=== PATIENT | female | born 1985 | race Caucasian/White ===

== ENCOUNTER 2017-12-30 12:07 | Inpatient (IN) ==
[2017-12-30 13:26] LABS: Bilirubin,Urine Negative (Negative); Clarity,Urine Clear (Clear); Glucose,Urine (UA) Negative (Negative); Leukocyte Esterase,Urine Negative (Negative); Nitrite,Urine Negative (Negative); Urobilinogen,Urine 0.2 mg/dL (Less than 2)
[2017-12-30] MEDS ORDERED: Sod Chloride 0.9% Inj 1,000 ML IV.SIG ONE (13:26)
[2017-12-30] MEDS ORDERED: Acetaminophen 500 MG Tablet PO ONE (13:29)
[2017-12-30 13:32] LABS: Color,Urine Straw (Yellw/Straw)
--- NOTE | 2017-12-30 13:35 | ED ---
HPI General Chief Complaint: Abdominal Pain Stated Complaint: anxiety/vomiting/headache/feverish x2days History of Present Illness HPI narrative: The patient was seen and examined in the presence of the nurse. This patient complains of fever and malaise and left lower quadrant abdominal pain. Duration is 3 days. Severity is moderate. She is an IV heroin abuser. Last use was 3 days ago. Has history of achalasia and has a left lower quadrant feeding tube for tube feeding 12 hours a day. She is on a liquid only diet. No alleviating factors. No exacerbating factors. Related Data Home Medications Medication Instructions Recorded Confirmed buprenorphine-naloxone 1 tab SUBLINGUAL TID 12/30/17 12/30/17 Allergies Allergy/AdvReac Type Severity Reaction Status Date / Time tree nut Allergy Severe Anaphylaxis Verified 12/30/17 12:52 Review of Systems ROS: all other systems reviewed are negative [facility] Medical History Medical History Achalasia (Acute) Jejunostomy tube present (Acute) Social History Social History Substance History: Active Abuse Smoking Status: Heavy tobacco smoker Tobacco Type: Cigarettes How Often Do You Have a Drink Containing Alcohol: Never Recent Travel in [facility] within the Last 8 Weeks: No Recent Out of Country Travel within the Last 8 Weeks: No Exam Narrative Exam Narrative: GENERAL: Thin disheveled well-developed patient with fever and abdominal pain . SKIN: Focused skin assessment reveals no rash and nodules. Skin is Warm and dry. HEAD: Atraumatic. Normocephalic. EYES: Pupils equal and round. No scleral icterus. No injection or drainage. ENT: No nasal bleeding or discharge. Mucous membranes pink and moist. NECK: Trachea midline. No JVD. No meningeal signs CARDIOVASCULAR: Regular rate and rhythm. 2/6 systolic murmur appreciated. RESPIRATORY: No accessory muscle use. Clear to auscultation. Breath sounds equal bilaterally. GASTROINTESTINAL: Abdomen soft, left lower quadrant is tender without rebound or guarding, there is a feeding tube in left lower quadrant, nondistended abdomen. Hepatic and splenic margins not palpable. MUSCULOSKELETAL: No obvious deformities. No clubbing. No cyanosis. No edema. NEUROLOGICAL: Awake and alert. No obvious cranial nerve deficits. Motor grossly within normal limits. Normal speech. PSYCHIATRIC: Appropriate mood and affect; insight and judgment poor. Course Initial Documented Vital Signs Temperature 101.4 F H 12/30/17 12:47 Pulse Rate 124 H 12/30/17 12:47 Respiratory Rate 18 12/30/17 12:47 Blood Pressure 112/59 L 12/30/17 12:47 Pulse Oximetry 99 12/30/17 12:47 Last Documented Vital Signs Temperature 101.4 F H 12/30/17 12:47 Pulse Rate 118 H 12/30/17 13:31 Respiratory Rate 18 12/30/17 13:31 Blood Pressure 120/65 12/30/17 13:31 Pulse Oximetry 98 12/30/17 13:31 Medical Decision Making MDM Narrative Medical decision making narrative: This is a febrile tachycardic IV heroin user with abdominal pain and heart murmur. 2 sets of blood cultures drawn and labs sent Pelvic exam is normal. She does not have PID. Her urine is clean and chest x- ray normal. CBC shows anemia but no leukocytosis. Has minor hyponatremia and hypokalemia. My big concern is endocarditis. She will be admitted for IV antibiotics and likely echocardiogram and following of the blood cultures. I have paged the hospitalist to discuss. She is challenging IV access so I placed a right external jugular 20-gauge IV Medical Screen Exam Complete: Yes Emergency Medical Condition: Yes Differential Diagnosis Differential Diagnosis: Endocarditis, sepsis, PID Medical Records Medical records reviewed: Yes I reviewed the patient's medical records. Lab Data Lab results reviewed: Yes I reviewed the patient's lab results. Result diagrams: 12/30/17 14:07 12/30/17 14:07 POC Results POC Urine Results Negative POC Urine Results Negative Lab Results 12/30/17 12/30/17 12/30/17 Range/Units 12:40 14:07 14:07 CBC w Diff Slide review pending WBC 7.8 (4.0-11.0) th/mm3 RBC 4.25 (4.00-5.30) mil/mm3 Hgb 10.0 L (11.6-15.3) gm/dL Hct 29.3 L (35.0-46.0) % MCV 68.8 L (80.0-100.0) fL MCH 23.4 L (27.0-34.0) pg MCHC 34.0 (32.0-36.0) % RDW 15.1 (11.6-17.2) % Plt Count 258 (150-450) th/mm3 MPV 7.2 (7.0-11.0) fL Neut % (Auto) 89.5 H (16.0-70.0) % Lymph % (Auto) 4.2 L (9.0-44.0) % [place] % (Auto) 5.7 (0.0-8.0) % Eos % (Auto) 0.0 (0.0-4.0) % Baso % (Auto) 0.6 (0.0-2.0) % Neut # (Auto) 7.1 (1.8-7.7) th/mm3 Lymph # (Auto) 0.3 L (1.0-4.8) th/mm3 [place] # (Auto) 0.4 (0.0-0.9) th/mm3 Eos # (Auto) 0.0 (0.0-0.4) th/mm3 Baso # (Auto) 0.0 (0.0-0.2) th/mm3 Differential Comment . Sodium 135 L (136-145) meq/L Potassium 3.2 L (3.5-5.1) meq/L Chloride 100 (98-107) meq/L Calcium 8.3 L (8.5-10.1) mg/dL Ur Collection Type Clean catch Urine Color Straw (Yellw/Straw) Urine Clarity Clear (Clear) Urine pH 8.0 (5.0-8.5) Ur Specific [place] 1.010 (1.002-1.035) Urine Protein Negative (Neg-Trace) mg/dL Urine Glucose (UA) Negative (Negative) mg/dL Urine Ketones Negative (Negative) mg/dL Urine Occult Blood Negative (Negative) Urine Nitrate Negative (Negative) Urine Bilirubin Negative (Negative) Urine Urobilinogen 0.2 (Less than 2) mg/dL Ur Leukocyte Esterase Negative (Negative) Urine RBC 0-3 (0-3) /hpf Urine WBC 0-5 (0-5) /hpf Ur Squamous Epith Cells 0-5 (0-5) /hpf Micro UA Comment Culture not ind Ur Microscopic Review Microscopic reviewed Urine Culture Comments Culture not ind Imaging Data Radiologist's impression: Chest X-Ray 12/30/17 13:26 CONCLUSION: Negative examination. Discharge Plan Discharge Disposition Patient Disposition: 30 Still Patient Discharge Details Diagnosis: Endocarditis, Drug abuse, IV Physicians Team ED Provider: Juan Harden Primary Care Provider: Primary Care Physici,No Rxs /Orders / Referrals /Forms Prescriptions: No Action buprenorphine-naloxone 8-2 mg Tablet, Sublingual 1 tab SUBLINGUAL TID RF: 0 Discharge Interventions Interventions: Vital Signs Last Done: 12/30/17 14:56 Status ED Status: In Room
[2017-12-30 13:43] LABS: RBC,Urine 0-3 /hpf (0-3); Squamous Epithelial Cell,Urine 0-5 /hpf (0-5); WBC,Urine 0-5 /hpf (0-5)
--- NOTE | 2017-12-30 14:13 | XR ---
EXAM DATE: 12/30/2017 1:52 PM EDT AGE/SEX: 32 years / Female INDICATIONS: Fever and vomiting. CLINICAL DATA: This is the patient's initial encounter. Patient reports that signs and symptoms have been present for 1 day and indicates a pain score of 0/10. MEDICAL/SURGICAL HISTORY: . Achalasia. None. COMPARISON: No prior exams available for comparison. FINDINGS: A single AP view of the chest demonstrates the lungs to be symmetrically aerated without evidence of mass, infiltrate or effusion. Nipple shadows generate bilateral basilar nodular densities. The cardio mediastinal contours are unremarkable. Osseous structures are intact. CONCLUSION: Negative examination. Electronically signed by: Michael Houston MD 12/30/2017 2:12 PM EDT
[2017-12-30] MEDS ORDERED: Acetaminophen 650 MG Supp RECTAL ONE (14:29)
[2017-12-30 14:41] LABS: Baso % (Auto) 0.6 % (0.0-2.0); Hematocrit 29.3 % (35.0-46.0); Lymph # (Auto) 0.3 th/mm3 (1.0-4.8); Lymph % (Auto) 4.2 % (9.0-44.0); Mean Corpuscular Hemoglobin 23.4 pg (27.0-34.0); Mean Corpuscular Volume 68.8 fL (80.0-100.0); Mean Platelet Volume 7.2 fL (7.0-11.0); Mono # (Auto) 0.4 th/mm3 (0.0-0.9); Mono % (Auto) 5.7 % (0.0-8.0); Neut # (Auto) 7.1 th/mm3 (1.8-7.7); Neut % (Auto) 89.5 % (16.0-70.0); Platelet Count 258 th/mm3 (150-450); Red Blood Count 4.25 mil/mm3 (4.00-5.30); Red Cell Distribution Width 15.1 % (11.6-17.2); White Blood Count 7.8 th/mm3 (4.0-11.0)
[2017-12-30 14:52] LABS: Chloride 100 meq/L (98-107); Potassium 3.2 meq/L (3.5-5.1); Sodium 135 meq/L (136-145)
[2017-12-30 14:55] LABS: Calcium 8.3 mg/dL (8.5-10.1)
[2017-12-30 14:56] LABS: Albumin 3.3 g/dL (3.4-5.0); Anion Gap 8 meq/L (5-15); Blood Urea Nitrogen 12 mg/dL (7-18); Carbon Dioxide 26.6 meq/L (21.0-32.0); Glucose,Random 119 mg/dL (74-106)
[2017-12-30 14:59] LABS: Alanine Aminotransferase 33 U/L (10-53); Aspartate Aminotransferase 29 U/L (15-37); Glomerular Filtration Rate Greater Than 89 mL/min (>89)
[2017-12-30 15:01] LABS: Total Protein 7.4 g/dL (6.4-8.2)
[2017-12-30 15:02] LABS: Alkaline Phosphatase 70 U/L (45-117)
[2017-12-30] MEDS ORDERED: Vancomycin Inj 1 GM/200 ML PIGGYBACK IV.SIG ONE (15:11)
[2017-12-30 15:14] LABS: Ovalocytes 2+
[2017-12-30] MEDS ORDERED: Bisacodyl 10 MG Supp RECTAL PRN (15:20)
[2017-12-30] MEDS ORDERED: Acetaminophen 325 MG Tablet PO PRN (15:20)
[2017-12-30] MEDS ORDERED: Vancomycin Consult Pharmacy OTHER PRN (15:28)
[2017-12-30] MEDS ORDERED: Vancomycin Inj 1,000 MG in Sodium Chlor 0.9% Inj 250 ML IV.SIG ONE (16:00)
[2017-12-30] MEDS ORDERED: Enoxaparin Inj 40 MG/0.4 ML Syringe SQ SCH (16:00)
[2017-12-30 16:25] LABS: Bilirubin,Urine Negative (Negative); Clarity,Urine Clear (Clear); Color,Urine Yellow (Yellw/Straw); Glucose,Urine (UA) Negative (Negative); Leukocyte Esterase,Urine Negative (Negative); Nitrite,Urine Negative (Negative); PH,Urine 6.5 (5.0-8.5); Specific Gravity,Urine Less/Equal 1.005 (1.002-1.035); Urobilinogen,Urine 0.2 mg/dL (Less than 2)
[2017-12-30 16:30] LABS: RBC,Urine 0-3 /hpf (0-3); Squamous Epithelial Cell,Urine 0-5 /hpf (0-5); WBC,Urine 0-5 /hpf (0-5)
--- NOTE | 2017-12-30 17:23 | P.HP ---
History of Present Illness Primary Care Physician: No Primary Care Physician Chief Complaint: Panic attack, shortness of breath History of Present Illness: 32-year-old female with known history of achalasia status post tube feeding, IV drug user, opiate dependency who presented to the hospital because of panic attack. Patient states that she is in her normal state of health until today when she started developing what she described as a panic attack. Patient states that he got sudden onset of feeling of panic, shortness of breath, dyspnea. It did not go away so she came to the hospital for evaluation. Patient does have history of IV drug use which she used the last time 3 days ago. Patient usually injects pills oxycodone. Patient states that she started on a new medication Subutex 2 days ago for her withdrawals and dependency. Patient presented to the emergency department and found to have febrile illness. Other workup was essentially unremarkable. Due to the patient's history of IV drug use and fever. ER physician concerned that the patient may have septicemia, possible endocarditis. Is recommended by ER physician the patient be admitted for further evaluation and management. Patient states that she does have achalasia and she uses feeding tube nightly approximate 4 cans every night. She thinks that her tube may have been dislodged. Patient denies any abdominal pain, nausea, vomiting, diarrhea. - Diagnosis (1) Drug abuse, IV (2) Febrile illness Inpatient Certification: I certify that the inpatient services were ordered in accordance with Medicare regulations governing the order. This includes certification that hospital inpatient services are reasonable and necessary and in the case of services not specified as inpatient-only under 42 CFR 419.22(n), that they are appropriately provided as inpatient services in accordance to with the 2-midnight benchmark under 43 CFR 412.3(e) Estimated Total Length of Stay (Days): 3 Plans for Post Hospital Care: Home Review of Systems All other systems reviewed negative except as stated in HPI Psychiatric: Reports anxiety PMFSH - History History Provided By: Patient - Medical History Medical History: Medical History (Last Updated 12/30/17 @ 17:17 by GONZALEZ Zhang) IV drug user Opiate dependence Achalasia Jejunostomy tube present - Surgical History Surgical History: Surgical History (Last Updated 12/30/17 @ 17:17 by GONZALEZ Zhang) Jejunostomy tube present - Family History Family History: Family History (Last Updated 12/30/17 @ 17:17 by GONZALEZ Zhang) Other No pertinent family history - Tobacco History Tobacco Use In Past 30 Days: Yes Smoking Status: Heavy tobacco smoker Tobacco Type: Cigarettes Packs Per Day: 1 Years Smoked: 12 - Alcohol History How Often Do You Have a Drink Containing Alcohol: Never - Substance Use History Substance History: Active Abuse - Substance Use Type Heroin Type: Opiates, oxycodone Status: Active Route Used: Intravenously Reason for Use: Get High - Travel History Recent Travel in the [place] Within the Last 8 Weeks: No Recent Travel Out of the Country Within the Last 8 Weeks: No - Immunization History Tetanus Immunization: Unsure Hx Influenza Vaccine This Season: Yes Medications and Allergies Active Medications: Active Medications Acetaminophen (Tylenol) 650 mg PO Q4H PRN PRN Reason: Headache, fever, pain 1-4 Al Hydroxide/Mg Hydroxide (Milk Of Magnesia Liq) 30 ml PO Q12H PRN PRN Reason: Mild Constipation Bisacodyl (Dulcolax Supp) 10 mg RECTAL DAILY PRN PRN Reason: SEVERE CONSITIPATION Enoxaparin Sodium (Lovenox Inj) 40 mg SQ Q24H [facility] Last Admin: 12/30/17 16:17 Dose: 40 mg Vancomycin HCl 800 mg/ Sodium (Chloride) 258 mls @ 250 mls/hr IV.SIG Q8H [facility]CO Lactulose (Lactulose Liq) 30 ml PO DAILY PRN PRN Reason: SEVERE CONSITIPATION Miscellaneous Information ([facility] Ordered Lab Info) 1 each OTHER ONCE ONE Stop: 01/01/18 09:46 Ondansetron HCl (Zofran Inj) 4 mg IV.PUSH Q6H PRN PRN Reason: NAUSEA OR VOMITING Pharmacy Profile Note (Vancomycin Consult Pharmacy) 1 each OTHER UNSCH PRN PRN Reason: Pharmacy to dose Sennosides (Senokot) 17.2 mg PO Q12H PRN PRN Reason: Moderate Constipation Sodium Chloride (Ns Flush) 2 ml IV.FLUSH PRN PRN PRN Reason: FLUSH AFTER USING IV ACCESS Last Admin: 12/30/17 16:13 Dose: 2 ml Allergies Allergy/AdvReac Type Severity Reaction Status Date / Time tree nut Allergy Severe Anaphylaxis Verified 12/30/17 12:52 Home Medications Medication Instructions Recorded Confirmed Type buprenorphine-naloxone 1 tab SUBLINGUAL TID 09/05/18 09/05/18 History Exam Vital signs: Vital Signs 12/30/17 12:47 12/30/17 13:31 12/30/17 14:56 Temperature 101.4 F H Pulse Rate 124 H 118 H 109 H Respiratory Rate 18 18 16 Blood Pressure 112/59 L 120/65 119/71 Pulse Oximetry 99 98 100 12/30/17 15:18 Temperature 100 F H Pulse Rate Respiratory Rate Blood Pressure Pulse Oximetry Intake & Output 12/29/17 12/30/17 12/30/17 18:59 06:59 18:59 Intake Total 1000 / 1000 Balance 1000 / 1000 Weight 53 kg Intake: IV 1000 / 1000 NS Inj 1,000 ML @ Wide Open IV. 1000 / 1000 SIG BOLUS ONE Rx#:[id number] Narrative: GENERAL: Well-developed, cachectic, in no acute distress. alert and orientated HEENT: Head is normocephalic without any lesions or masses noted. Facial features are symmetric. Eyes: Pupils equal round reactive to light. Extraocular muscles are intact. Conjunctivae were clear. Oropharyngeal: Pharynx without any erythema edema. Tongue is midline without deviation. Buccal mucosa is moist without any masses or lesions NECK: Supple without any masses. Trachea midline no deviation. No JVD, no bruits are appreciated CARDIAC: Regular rhythm, regular rate. S1/S2 are heard. No murmurs gallops or rubs. LUNGS: Clear to auscultation bilaterally. No wheeze, rhonchi or rales. No use of accessory muscles on inspiration or expiration. ABDOMEN: Soft, nontender. Nondistended. Bowel sounds heard in all 4 quadrants. No organomegaly or masses. Negative rebound, negative guarding, feeding tube noted on the left lateral abdomen EXTREMITIES: No edema, pulses are equal bilaterally. No cyanosis or clubbing NEUROLOGY: Mood and affect appear appropriate. Cranial nerves II through XII grossly intact. Muscle strength 5/5 in upper and lower extremities bilaterally. Deep tendon reflexes are 2+ in upper and lower extremities bilaterally. Results - Labs CBC & Chem 7: 12/30/17 14:07 12/30/17 14:07 Labs: Laboratory Results - last 24 hr 12/30/17 12/30/17 12/30/17 12:40 14:07 14:07 CBC w Diff Slide review pending WBC 7.8 RBC 4.25 Hgb 10.0 L Hct 29.3 L MCV 68.8 L MCH 23.4 L MCHC 34.0 RDW 15.1 Plt Count 258 MPV 7.2 Neut % (Auto) 89.5 H Lymph % (Auto) 4.2 L [place] % (Auto) 5.7 Eos % (Auto) 0.0 Baso % (Auto) 0.6 Neut # (Auto) 7.1 Lymph # (Auto) 0.3 L [place] # (Auto) 0.4 Eos # (Auto) 0.0 Baso # (Auto) 0.0 WBC Differential . Diff Scan Auto diff confirmed Differential Comment . Ovalocytes 2+ H Keratocytes Occ H Sodium 135 L Potassium 3.2 L Chloride 100 Carbon Dioxide 26.6 Anion Gap 8 BUN 12 Creatinine 0.48 L Estimated GFR Greater than 89 Random Glucose 119 H Calcium 8.3 L Total Bilirubin 0.2 AST 29 ALT 33 Alkaline Phosphatase 70 Total Protein 7.4 Albumin 3.3 L Ur Collection Type Clean catch Urine Color Straw Urine Clarity Clear Urine pH 8.0 Ur Specific [place] 1.010 Urine Protein Negative Urine Glucose (UA) Negative Urine Ketones Negative Urine Occult Blood Negative Urine Nitrate Negative Urine Bilirubin Negative Urine Urobilinogen 0.2 Ur Leukocyte Esterase Negative Urine RBC 0-3 Urine WBC 0-5 Ur Squamous Epith Cells 0-5 Micro UA Comment Culture not ind Ur Microscopic Review Microscopic reviewed Urine Culture Comments Culture not ind 12/30/17 16:20 CBC w Diff WBC RBC Hgb Hct MCV MCH MCHC RDW Plt Count MPV Neut % (Auto) Lymph % (Auto) [place] % (Auto) Eos % (Auto) Baso % (Auto) Neut # (Auto) Lymph # (Auto) [place] # (Auto) Eos # (Auto) Baso # (Auto) WBC Differential Diff Scan Differential Comment Ovalocytes Keratocytes Sodium Potassium Chloride Carbon Dioxide Anion Gap BUN Creatinine Estimated GFR Random Glucose Calcium Total Bilirubin AST ALT Alkaline Phosphatase Total Protein Albumin Ur Collection Type Urine Color Yellow Urine Clarity Clear Urine pH 6.5 Ur Specific [place] Less/equal 1.005 Urine Protein Negative Urine Glucose (UA) Negative Urine Ketones Negative Urine Occult Blood Negative Urine Nitrate Negative Urine Bilirubin Negative Urine Urobilinogen 0.2 Ur Leukocyte Esterase Negative Urine RBC 0-3 Urine WBC 0-5 Ur Squamous Epith Cells 0-5 Micro UA Comment Culture not ind Ur Microscopic Review Microscopic reviewed Urine Culture Comments Culture not ind - Imaging Impressions Chest X-Ray 12/30/17 13:26 CONCLUSION: Negative examination. Caprini VTE Risk Assessment Caprini VTE Risk Assessment: Moderate/High Risk (score >= 2) Caprini Risk Assessment Model: Point Value = 1 Point Value = 2 Point Value = 3 Point Value = 5 Age 41-60 Minor surgery BMI > 25 kg/m2 Swollen legs Varicose veins or History of unexplained or recurrent spontaneous Oral contraceptives or hormone replacement Sepsis (< 1 month) Serious lung disease, including pneumonia (< 1 month) Abnormal pulmonary function Acute myocardial infarction Congestive heart failure (< 1 month) History of inflammatory bowel disease Medical patient at bed rest Age 61-74 Arthroscopic surgery Major open surgery (> 45 min) Laparoscopic surgery (> 45 min) Malignancy Confined to bed (> 72 hours) Immobilizing plaster cast Central venous access Age >= 75 History of VTE Family history of VTE Factor V Leiden Prothrombin [id number] Lupus anticoagulant Anticardiolipin antibodies Elevated serum homocysteine Heparin-induced thrombocytopenia Other congenital or acquired thrombophilia Stroke (< 1 month) Elective arthroplasty Hip, pelvis, or leg fracture Acute spinal cord injury (< 1 month) Prophylaxis Regimen: Total Risk Factor Score Risk Level Prophylaxis Regimen 0-1 Low Early ambulation 2 Moderate Order ONE of the following: *Sequential Compression Device (SCD) *Heparin 5000 units SQ BID 3-4 Higher Order ONE of the following medications: *Heparin 5000 units SQ TID *Enoxaparin/Lovenox 40 mg SQ daily (WT < 150 kg, CrCl > 30 mL/min) *Enoxaparin/Lovenox 30 mg SQ daily (WT < 150 kg, CrCl > 10-29 mL/min) *Enoxaparin/Lovenox 30 mg SQ BID (WT < 150 kg, CrCl > 30 mL/min) AND/OR *Sequential Compression Device (SCD) 5 or more Highest Order ONE of the following medications: *Heparin 5000 units SQ TID (Preferred with Epidurals) *Enoxaparin/Lovenox 40 mg SQ daily (WT < 150 kg, CrCl > 30 mL/min) *Enoxaparin/Lovenox 30 mg SQ daily (WT < 150 kg, CrCl > 10-29 mL/min) *Enoxaparin/Lovenox 30 mg SQ BID (WT < 150 kg, CrCl > 30 mL/min) AND *Sequential Compression Device (SCD) Assessment and Plan - Assessment (1) Drug abuse, IV Code(s): F19.10 - Other psychoactive substance abuse, uncomplicated Status: Acute (2) Febrile illness Code(s): R50.9 - Fever, unspecified Status: Acute - Plan Febrile illness, unknown etiology -Patient is high risk to have septicemia, endocarditis secondary to IV drug use without any sterile technique -Chest x-ray was unremarkable for any acute abnormality -Urinalysis was clear -Patient started on vancomycin -Blood cultures have been ascertained Achalasia status post feeding tube placement -Patient thinks that feeding tube may be dislodged -Discussed with radiology who recommended to start with abdominal x-ray to evaluate for placement may have to do CT for final delineation -Dietitian consulted for tube feeding recommendations IV drug use, opiate dependency -Patient counseled on cessation DVT prevention -Subcutaneous Lovenox
--- NOTE | 2017-12-30 17:31 | XR ---
EXAM DATE: 12/30/2017 5:25 PM EDT AGE/SEX: 32 years / Female INDICATIONS: Feeding tube placement. CLINICAL DATA: This is the patient's subsequent encounter. Patient reports that signs and symptoms h ave been present for 1 day and indicates a pain score of Nonresponsive. MEDICAL/SURGICAL HISTORY: . Achalasia. Endocarditis. IV drug user. Non-responsive. COMPARISON: No prior exams available for comparison. FINDINGS: The abdominal bowel gas pattern is normal. No abnormal masses, calcifications, or organomegaly is s een. The osseous structures are unremarkable. A percutaneous feeding tube overlies the left midabdom en. Its exact location is uncertain. CONCLUSION: Feeding tube as above. Electronically signed by: Melchor Brown MD 12/30/2017 5:30 PM EDT
--- NOTE | 2017-12-30 21:23 | CT ---
EXAM DATE: 12/30/2017 9:01 PM EDT AGE/SEX: 32 years / Female INDICATIONS: Abdomen pain. Patient states that her feeding tube is out of place, evaluate for proper placement. CLINICAL DATA: This is the patient's initial encounter. Patient reports that signs and symptoms have been present for 1 day and indicates a pain score of 3/10. MEDICAL/SURGICAL HISTORY: . IVDU. . Jejunostomy tube placement. RADIATION DOSE: 5.57 CTDI (mGy) COMPARISON: No prior exams available for comparison. TECHNIQUE: Multiple contiguous axial images were obtained through the abdomen. Images were obtained using multiple row detector helical technique. Using automated exposure control and adjustment of the mA and/or kV according to patient size, radiation dose was kept as low as reasonably achievable to o btain optimal diagnostic quality images. DICOM format image data is available electronically for rev iew and comparison. FINDINGS: Lower Lungs: The visualized lower lungs are clear. Liver: The liver has a homogeneous density without space-occupying lesion. There is no dilation of th e biliary tree. Noncalcified gallstones or gallbladder sludge are noted within the gallbladder lumen. Spleen: Homogeneous density without enlargement. Pancreas: Unremarkable without mass or calcification. Kidneys: Normal in size and shape. No evidence of mass or hydronephrosis. There are multiple calcifi ed nonobstructing bilateral renal calculi with the largest on the left measuring 2 mm. Adrenal Glands: Unremarkable. Aorta: The aorta and proximal iliac vessels are grossly unremarkable without aneurysmal dilation. Bowel/Mesentery: Jejunostomy tube is noted and appears to be adequate in position.. The bowel loops are grossly unremarkable. The cecum and sigmoid colon have a normal configuration. Abdominal Wall: Intact. Retroperitoneum: No evidence of adenopathy in the retrocrural, para-aortic, or deep pelvic regions. Bladder: Contours are smooth. Reproductive Organs: No abnormal masses or calcifications seen. Inguinal: The inguinal region is unremarkable without evidence of adenopathy. Bony Structures: Mild scoliosis of lumbar spine is noted. CONCLUSION: 1. Multiple calcified nonobstructing bilateral renal calculi with the largest on the left measuring 2 mm. 2. Noncalcified gallstones/gallbladder sludge within the gallbladder lumen. 3. Jejunostomy tube appears to be adequate in position. Electronically signed by: Bear Gómez MD 12/30/2017 9:22 PM EDT
[2017-12-31] MEDS: Vancomycin Inj 800 MG in Sodium Chlor 0.9% Inj 250 ML IV.SIG SCH ×2 (01:42→13:06)
[2017-12-31 06:30] LABS: Chloride 105 meq/L (98-107); Potassium 3.2 meq/L (3.5-5.1); Sodium 138 meq/L (136-145)
[2017-12-31 06:32] LABS: Calcium 8.2 mg/dL (8.5-10.1)
[2017-12-31 06:33] LABS: Anion Gap 8 meq/L (5-15); Blood Urea Nitrogen 11 mg/dL (7-18); Carbon Dioxide 25.2 meq/L (21.0-32.0); Glucose,Random 96 mg/dL (74-106)
[2017-12-31 06:36] LABS: Glomerular Filtration Rate Greater Than 89 mL/min (>89)
[2017-12-31 06:39] LABS: Baso % (Auto) 0.4 % (0.0-2.0); Eos % (Auto) 0.9 % (0.0-4.0); Hematocrit 30.5 % (35.0-46.0); Hemoglobin 10.2 gm/dL (11.6-15.3); Lymph # (Auto) 0.6 th/mm3 (1.0-4.8); Mean Corpuscular HGB Conc 33.3 % (32.0-36.0); Mean Corpuscular Hemoglobin 23.3 pg (27.0-34.0); Mean Platelet Volume 7.5 fL (7.0-11.0); Mono # (Auto) 0.4 th/mm3 (0.0-0.9); Mono % (Auto) 8.9 % (0.0-8.0); Neut # (Auto) 3.4 th/mm3 (1.8-7.7); Neut % (Auto) 75.8 % (16.0-70.0); Platelet Count 255 th/mm3 (150-450); Red Blood Count 4.37 mil/mm3 (4.00-5.30); Red Cell Distribution Width 15.1 % (11.6-17.2); White Blood Count 4.4 th/mm3 (4.0-11.0)
[2017-12-31 07:25] LABS: Ovalocytes 2+
[2017-12-31] MEDS: Potassium Chlor 10 mEq Premix 10 MEQ/100 ML PIGGYBACK IV.SIG SCH ×4 (09:16→12:58)
--- NOTE | 2017-12-31 09:37 | ECHRPT ---
Indication: CONCLUSIONS The left ventricular systolic function is low normal with an estimated ejection fraction in the rang e of 50- 55%. Normal left ventricular size. Wall thickness is normal. No regional wall motion abnormalities are present. There is trace tricuspid valve regurgitation. Normal estimated pulmonary pressures. BP: / HR: Rhythm: MEASUREMENTS (Male / Female) Normal Values Technical Quality: 2D ECHO LV Diastolic Diameter PLAX 4.6 cm 4.2 - 5.9 / 3.9 - 5.3 cm LV Systolic Diameter PLAX 3.6 cm IVS Diastolic Thickness 0.7 cm 0.6 - 1.0 / 0.6 - 0.9 cm LVPW Diastolic Thickness 0.7 cm 0.6 - 1.0 / 0.6 - 0.9 cm LV Relative Wall Thickness 0.3 LVOT Diameter 1.9 cm LA Systolic Diameter LX 1.9 cm 3.0 - 4.0 / 2.7 - 3.8 cm LV Ejection Fraction MOD 4C 63.6 % LV Ejection Fraction 4C AL 64.0 % M-MODE Aortic Root Diameter MM 2.1 cm LA Systolic Diameter MM 2.4 cm LA Ao Ratio MM 1.1 AV Cusp Separation MM 1.3 cm DOPPLER AV Peak Velocity 118.0 cm/s AV Peak Gradient 5.6 mmHg LVOT Peak Velocity 109.0 cm/s LVOT Peak Gradient 4.8 mmHg AV Area Cont Eq pk 2.6 cm MV Area PHT 4.0 cm Mitral E Point Velocity 77.5 cm/s Mitral A Point Velocity 60.7 cm/s Mitral E to A Ratio 1.3 LV E' Lateral Velocity 11.3 cm/s Mitral E to LV E' Lateral Ratio 6.9 LV E' Septal Velocity 9.5 cm/s Mitral E to LV E' Septal Ratio 8.2 TR Peak Velocity 159.0 cm/s TR Peak Gradient 10.1 mmHg Right Atrial Pressure 10.0 mmHg Pulmonary Artery Systolic Pressu 20.1 mmHg Right Ventricular Systolic Press 20.1 mmHg PV Peak Velocity 90.9 cm/s PV Peak Gradient 3.3 mmHg FINDINGS LEFT VENTRICLE The left ventricular systolic function is low normal with an estimated ejection fraction in the rang e of 50- 55%. Normal left ventricular size. Wall thickness is normal. No regional wall motion abnormalities are present. RIGHT VENTRICLE Normal right ventricular size and systolic function. LEFT ATRIUM The left atrial size is normal. RIGHT ATRIUM The right atrial size is normal. ATRIAL SEPTUM Normal atrial septal thickness without atrial level shunting by limited color doppler interrogation. AORTA The aortic root and proximal ascending aorta are normal in size on limited imaging. MITRAL VALVE Structurally normal mitral valve. No mitral valve stenosis or regurgitation. AORTIC VALVE Trileaflet aortic valve. No aortic valve stenosis or regurgitation. TRICUSPID VALVE Structurally normal tricuspid valve. There is trace tricuspid valve regurgitation. Normal estimated pulmonary pressures. PULMONARY VALVE No pulmonary valve regurgitation or stenosis. VESSELS The inferior vena cava is normal in size. PERICARDIUM No pericardial effusion. Misael Cordova MD (Electronically Signed) Final Date:31 December 2017 09:36
--- NOTE | 2017-12-31 09:55 | P.PN ---
Subjective Interval history: 32-year-old female who is seen and examined today for follow-up on anxiety, fever. Patient remains afebrile this time. Patient has had to get Ativan for anxiety. Discussed with her and she indicates that she has been on Zoloft, Wellbutrin, Vistaril, Ativan for anxiety in the past. She indicates that the one that has worked the best was Vistaril. Patient vital signs remained stable. Physical Exam Vital signs: Vital Signs 12/30/17 12:47 12/30/17 13:31 12/30/17 14:56 Temperature 101.4 F H Pulse Rate 124 H 118 H 109 H Respiratory Rate 18 18 16 Blood Pressure 112/59 L 120/65 119/71 Pulse Oximetry 99 98 100 12/30/17 15:18 12/30/17 16:00 12/30/17 20:00 Temperature 100 F H 98.6 F 97.8 F Pulse Rate 107 H 89 Respiratory Rate 17 20 Blood Pressure 112/69 121/83 Pulse Oximetry 99 98 12/31/17 00:00 12/31/17 08:28 Temperature 96.4 F L 98.7 F Pulse Rate 82 81 Respiratory Rate 20 14 Blood Pressure 120/86 132/79 Pulse Oximetry 99 99 Intake & Output 12/30/17 12/31/17 12/31/17 18:59 06:59 18:59 Intake Total 1250 / 1250 258 / 258 Balance 1250 / 1250 258 / 258 Weight 53 kg 51.8 kg Intake: IV 1250 / 1250 258 / 258 NS Inj 1,000 ML @ Wide Open IV. 1000 / 1000 SIG BOLUS ONE Rx#:[id number] Vancomycin Inj 1,000 MG In NS 250 / 250 Inj 250 ML @ 250 mls/hr IV.SIG ONCE ONE Rx#:[id number] Vancomycin Inj 800 MG In NS Inj 258 / 258 250 ML @ 250 mls/hr IV.SIG Q8H MAYCO Rx#:[id number] Oral 0 / 0 0 / 0 Other: # Voids 1 0 # Bowel Movements 0 Narrative: GENERAL: Well-developed, cachectic, in no acute distress. alert and orientated HEENT: Head is normocephalic without any lesions or masses noted. Facial features are symmetric. Eyes: Extraocular muscles are intact. Conjunctivae were clear. NECK: Supple without any masses. Trachea midline no deviation. No JVD, CARDIAC: Regular rhythm, regular rate. S1/S2 are heard. No murmurs gallops or rubs. LUNGS: Clear to auscultation bilaterally. No wheeze, rhonchi or rales. No use of accessory muscles on inspiration or expiration. ABDOMEN: Soft, nontender. Nondistended. Bowel sounds heard in all 4 quadrants. No organomegaly or masses. Negative rebound, negative guarding, feeding tube noted on the left lateral abdomen EXTREMITIES: No edema, pulses are equal bilaterally. No cyanosis or clubbing NEUROLOGY: Mood and affect appear appropriate. Cranial nerves II through XII grossly intact. Moving all extremities, speech is clear Results - Labs CBC & Chem 7: 12/31/17 05:37 12/31/17 05:37 Laboratory Results - last 24 hr 12/30/17 12/30/17 12/30/17 12:40 14:07 14:07 CBC w Diff Slide review pending WBC 7.8 RBC 4.25 Hgb 10.0 L Hct 29.3 L MCV 68.8 L MCH 23.4 L MCHC 34.0 RDW 15.1 Plt Count 258 MPV 7.2 Neut % (Auto) 89.5 H Lymph % (Auto) 4.2 L [place] % (Auto) 5.7 Eos % (Auto) 0.0 Baso % (Auto) 0.6 Neut # (Auto) 7.1 Lymph # (Auto) 0.3 L [place] # (Auto) 0.4 Eos # (Auto) 0.0 Baso # (Auto) 0.0 WBC Differential . Diff Scan Auto diff confirmed Differential Comment . Ovalocytes 2+ H Keratocytes Occ H Sodium 135 L Potassium 3.2 L Chloride 100 Carbon Dioxide 26.6 Anion Gap 8 BUN 12 Creatinine 0.48 L Estimated GFR Greater than 89 Random Glucose 119 H Calcium 8.3 L Total Bilirubin 0.2 AST 29 ALT 33 Alkaline Phosphatase 70 Total Protein 7.4 Albumin 3.3 L Ur Collection Type Clean catch Urine Color Straw Urine Clarity Clear Urine pH 8.0 Ur Specific [place] 1.010 Urine Protein Negative Urine Glucose (UA) Negative Urine Ketones Negative Urine Occult Blood Negative Urine Nitrate Negative Urine Bilirubin Negative Urine Urobilinogen 0.2 Ur Leukocyte Esterase Negative Urine RBC 0-3 Urine WBC 0-5 Ur Squamous Epith Cells 0-5 Micro UA Comment Culture not ind Ur Microscopic Review Microscopic reviewed Urine Culture Comments Culture not ind 12/30/17 12/31/17 12/31/17 16:20 05:37 05:37 CBC w Diff Slide review pending WBC 4.4 RBC 4.37 Hgb 10.2 L Hct 30.5 L MCV 70.0 L MCH 23.3 L MCHC 33.3 RDW 15.1 Plt Count 255 MPV 7.5 Neut % (Auto) 75.8 H Lymph % (Auto) 14.0 [place] % (Auto) 8.9 H Eos % (Auto) 0.9 Baso % (Auto) 0.4 Neut # (Auto) 3.4 Lymph # (Auto) 0.6 L [place] # (Auto) 0.4 Eos # (Auto) 0.0 Baso # (Auto) 0.0 WBC Differential . Diff Scan Auto diff confirmed Differential Comment . Ovalocytes 2+ H Keratocytes Occ H Sodium 138 Potassium 3.2 L Chloride 105 Carbon Dioxide 25.2 Anion Gap 8 BUN 11 Creatinine 0.41 L Estimated GFR Greater than 89 Random Glucose 96 Calcium 8.2 L Total Bilirubin AST ALT Alkaline Phosphatase Total Protein Albumin Ur Collection Type Urine Color Yellow Urine Clarity Clear Urine pH 6.5 Ur Specific [place] Less/equal 1.005 Urine Protein Negative Urine Glucose (UA) Negative Urine Ketones Negative Urine Occult Blood Negative Urine Nitrate Negative Urine Bilirubin Negative Urine Urobilinogen 0.2 Ur Leukocyte Esterase Negative Urine RBC 0-3 Urine WBC 0-5 Ur Squamous Epith Cells 0-5 Micro UA Comment Culture not ind Ur Microscopic Review Microscopic reviewed Urine Culture Comments Culture not ind - Imaging Impressions Abdomen X-Ray 12/30/17 00:00 CONCLUSION: Feeding tube as above. Abdomen/Pelvis CT 12/30/17 00:00 CONCLUSION: 1. Multiple calcified nonobstructing bilateral renal calculi with the largest on the left measuring 2 mm. 2. Noncalcified gallstones/gallbladder sludge within the gallbladder lumen. 3. Jejunostomy tube appears to be adequate in position. Chest X-Ray 12/30/17 13:26 CONCLUSION: Negative examination. - Procedures ECHOCARDIOGRAM CONCLUSIONS The left ventricular systolic function is low normal with an estimated ejection fraction in the range of 50- 55%. Normal left ventricular size. Wall thickness is normal. No regional wall motion abnormalities are present. There is trace tricuspid valve regurgitation. Normal estimated pulmonary pressures. Assessment and Plan - Assessment (1) Drug abuse, IV Code(s): F19.10 - Other psychoactive substance abuse, uncomplicated Status: Acute (2) Febrile illness Code(s): R50.9 - Fever, unspecified Status: Acute - Plan Febrile illness, unknown etiology, resolved -Patient is high risk to have septicemia, endocarditis secondary to IV drug use without any sterile technique -Chest x-ray was unremarkable for any acute abnormality -Urinalysis was clear -Continue vancomycin -Blood cultures are negative Achalasia status post feeding tube placement -Patient thinks that feeding tube may be dislodged -Abdominal x-ray, CT the abdomen was performed and indicates that feeding tube is in appropriate position -Dietitian consulted for tube feeding recommendations -Full liquid diet IV drug use, opiate dependency -Patient counseled on cessation -Echocardiogram, per results as above DVT prevention -Subcutaneous Lovenox Discharge Planning: Discharge home in stable condition Activity: Ad shree. Diet: Liquid diet Medication per medication reconciliation Follow-up with primary medical doctor in 1 week
[2017-12-31 12:35] VITALS: BP 112/58; PULSE 87; RESP 16; TEMP 98.2; O2SAT 98
[2018-01-01] MEDS ORDERED: Pharmacy Ordered Lab Info OTHER ONE (09:45)
== END 2017-12-31 14:42 | disposition home or self-care (01) ==
LOC: PHED 12:07 → PHEDA 12:07 → PH3 16:56
PROVIDERS: ADMIT Hospitalist; ATTEND Hospitalist